=== PATIENT | female | born 1975 | race Hispanic/Latino ===

== ENCOUNTER 2018-01-07 19:37 | Emergency (ER) | payer OTHER ==
[~2018-01-07] VITALS: Ht 152.4 cm; Wt 71.4 kg
[~2018-01-07 19:37] MED LIST: CEFDINIR300 MG PO; NAPROSYN500 MG PO; NORCO 5/3251 TABLET PO; PYRIDIUM200 MG PO; ULTRAM50 MG PO; ZOFRAN ODT4 MG PO
[2018-01-07] MEDS ORDERED: NAPROSYN500 MG PO (21:35)
[2018-01-07 21:53] VITALS: BP 130/55
== END 2018-01-07 21:56 | disposition home or self-care (01) ==
LOC: EME 19:37
PROC: 0JQR0ZZ Repair Left Foot Subcutaneous Tissue and Fascia, Open Approach (ICD-10-PCS; principal; 2018-01-07)
DX: S91.312A Laceration without foreign body, left foot, initial encounter (principal); W26.8XXA Contact with other sharp object(s), not elsewhere classified, initial encounter